=== PATIENT | male | born 1980 | race Caucasian/White ===

== ENCOUNTER 2020-11-13 12:33 | Emergency (ER) | payer OTHER ==
[2020-11-13 12:45] VITALS: BP 156/94; PULSE 83; TEMP 99.6; BMI 36.9
[2020-11-13 13:26] LABS: BASO % 0.8 % (0-2.0); EOS % 1.9 % (0-4.5); HEMATOCRIT 47.1 % (35.4-49); HEMOGLOBIN 16.3 GM/dl (11.7-16.9); LYMPH % 19.9 % (8-40); MCH 31.9 pg (25.7-33.7); MCHC 34.5 g/dl (32.0-35.9); MEAN CELL VOLUME 92.5 fl (80-96); MEAN PLT VOLUME 9.5 fl (7.5-11.1); MONO % 7.7 % (3.8-10.2); NEUT % 69.7 % (42.8-82.8); PLATELET COUNT 118 10^3/uL (134-434); RDW 12.5 % (11.9-15.9); WHITE BLOOD COUNT 6.5 K/mm3 (4.0-10.8)
[2020-11-13 13:31] LABS: ACTIVATED PTT 31.2 SECONDS (25.2-36.5)
[2020-11-13 13:36] LABS: ALBUMIN 4.2 g/dl (3.4-5.0); ALK PHOS 67 U/L (45-117); ANION GAP 11 MMOL/L (8-16); CALCIUM 9.4 mg/dl (8.5-10); CHLORIDE 100 mmol/L (98-107); CO2 25 mmol/L (21-32); GLUCOSE,RANDOM 109 mg/dl (74-106); INR 1.07 (0.82-1.09); PROTHROMBIN TIME (PATIENT) 11.9 SEC (10.2-13.0); SGOT/AST 31 U/L (15-37); SGPT/ALT 39 U/L (13-61); SODIUM 136 mmol/L (136-145); TOT PROT 7.4 g/dl (6.4-8.2)
[2020-11-14 12:20] LABS: SARS-CoV-2 NAA Not Detected (Not Detected)
== END 2020-11-13 14:57 | disposition home or self-care (01) ==
LOC: FER 12:33
DX: R07.9 Chest pain, unspecified (principal)
CPT/HCPCS: 36415; 71046-TC-FY; 80053; 82550; 82553; 84443; 84484; 85025; 85610; 85730; 93005; 99285-25; C9803; U0003; U0005